=== PATIENT | female | born 1995 | race Caucasian/White ===

== ENCOUNTER 2025-01-18 05:25 | Inpatient (IN) ==
--- NOTE | 2025-01-08 09:10 | Anesthesiology Consultation ---
Date of Service January 08, 2025 Assessment & Plan (1) Encounter for pre-operative examination: - Infectious disease screening: Per assessment on 01/08/25- No known recent infectious disease contacts or current infectious disease symptoms. 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 Reports in February, while at work, all the sudden she felt her heart racing, pounding and skipping, episode lasted for about 30 min, when she checked her pulse HR was in the 160s. She had a recent zio monitor placed which showed 1256 runs of symptomatic SVTs. She states that one month after her initial episode she felt better. However, since March she is having weekly episodes sometimes lasting 30min. She is symptomatic and feels her heart racing and with high HR she feels lightheaded and dizzy. Patient was seen and examined with Dr. Yeung. Pathophysiology and management options of SVT were reviewed. Patient is most interested in EPS study and catheter ablation.. RTC post ablation." > Patient subsequently had positive test and decision to cancel ablation at this time. To f/u after . 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 History Surgery Operation Date: 01/18/25 07:30 Proposed Procedures p Section in LD (Delivery of Baby Through Abdominal Incision) - Larissa Fleming MD, FACOG Height/Weight Height: 5 ft 6 in Weight: 95.254 kg Allergies Allergy/AdvReac Type Severity Reaction Status Date / Time Sulfa (Sulfonamide Allergy Mild Rash (as a Verified 01/08/25 08:15 Antibiotics) child) Medications Home Medications Medication Instructions Recorded Confirmed Last Taken levothyroxine 50 mcg tablet 50 mcg PO QAM 09/19/23 01/08/25 Unknown vits no.124-ferrous fum 1 tab PO QAM 09/19/23 01/08/25 Unknown 27 mg iron-folic acid 800 mcg tablet ( Vitamin) breast pump #1 ea 12/21/24 01/04/25 Unknown Past Medical History Medical History Rosie's thyroiditis History of spontaneous Fall 2022 Hx of supraventricular tachycardia Evlauted by Hermelinda Patel cardio Past Family History Family History Father Hypercholesteremia Hypertension Mother Lupus Thyroid disease Other No family history of adverse response to anesthesia Denies family history of Ovarian cancer Breast cancer Colorectal cancer Past Surgical History Surgical History S/P section S/P tonsillectomy and adenoidectomy S/P wisdom tooth extraction Social History Smoking Status: Never smoker Do You Dip or Chew Tobacco: No Hx Alcohol Use: No Hx Substance Use: No substance use type: does not use Testing Electrocardiogram Date: 05/15/24 Findings: + NSR @ (72) 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 Predominant underlying rhythm was Sinus Rhythm. 1256 Supraventricular Tachycardia runs occurred, the run with the fastest interval lasting 5 beats with a max rate of 200 bpm, the longest lasting 47 mins 8 secs with an avg rate of 125 bpm. Supraventricular Tachycardia was detected within +/- 45 seconds of symptomatic patient event(s). Isolated SVEs were rare (<1.0%), SVE Couplets were rare (<1.0%), and SVE Triplets were rare (<1.0%). Isolated VEs were rare (<1.0%), VE Couplets were rare (<1.0%), and no VE Triplets were present. Ventricular Trigeminy was present. Agree with Preliminary Findings.. The patient had frequent episodes of PSVT. In this age group and based on the morphology it may be AVRT. If the patient is not already seeing.. Cardiology then a referral to the EP service would be recommended.
--- NOTE | 2025-01-17 18:27 | History & Physical Report ---
Date of Service January 17, 2025 Assessment & Plan (1) Previous delivery affecting , antepartum: Plan: IUP at 39+ weeks presents for repeat LTCS the procedure and it's risks reviewed with the patient and all questions answered to her satisfaction. History of Present Illness Primary Care Provider: Shanice Wyman PA-C Patient is a female EDC [birth year] who presents at 39+ weeks for repeat LTCS. Prior LTCS was performed for arrest of descent after pushing for 4 hours- presentation was OP. testing this has been reassuring. complicated by Rosie's thyroiditis. Blood type A (+) GBS - negative. Allergies Allergy/AdvReac Type Severity Reaction Status Date / Time Sulfa (Sulfonamide Allergy Mild Rash (as a Verified 01/17/25 08:35 Antibiotics) child) Home Medications Medication Instructions Recorded Confirmed Type levothyroxine 50 mcg tablet 50 mcg PO QAM 09/19/23 01/17/25 History vits no.124-ferrous fum 1 tab PO QAM 09/19/23 01/17/25 History 27 mg iron-folic acid 800 mcg tablet ( Vitamin) breast pump #1 ea 12/21/24 01/17/25 Rx Patient History Medical History Rosie's thyroiditis History of spontaneous Fall 2022 Hx of supraventricular tachycardia Evlauted by HAROLDO Patel cardio Surgical History S/P section S/P tonsillectomy and adenoidectomy S/P wisdom tooth extraction Family History Father Hypercholesteremia Hypertension Mother Lupus Thyroid disease Other No family history of adverse response to anesthesia Denies family history of Ovarian cancer Breast cancer Colorectal cancer Social History (Updated 06/12/24 @ 09:45 by Alisa Mcwilliams) Smoking Status: Never smoker Second Hand Exposure: No; Do You Dip or Chew Tobacco: No; Hx Alcohol Use: No Hx Substance Use: No Preferred Language: Arabic Communication Ability: Effective Lamina Searcher Required: No Beliefs That Will Affect Care: None marital status: marital status details: Pako Troncoso (31) [phone] Current Living Situation: Spouse and Family Current Living Situation Comment: lives with spouse, daughter, 1odg current occupational status: employed current occupation: [employer] Feels Safe at Home: Yes Assistive Devices: None Review of Systems All systems reviewed & are unremarkable except as noted in HPI & below Physical Exam Constitutional: WD/WN, vitals as above Psychiatric: A+Ox3, euthymic affect Genitourinary: OB Exam Abdomen: + fundal height (term), + heart tones (135 bpm) and + vertex Coding Level of Care Code 94440 INT INP/OBS CARE MIN Diagnoses Previous delivery affecting , antepartum O34.219
[2025-01-18] MEDS: ACETAMINOPHEN 500 MG TAB PO SCH (05:58)
[2025-01-18 06:26] LABS: Hematocrit (blood only) 37.1 % (37.0-47.0); Hemoglobin 13.1 g/dl (12.0-16.0); Mean Corpuscular Hemoglobin 30.1 pg (25.0-34.0); Mean Corpuscular Hgb Conc 35.3 g/dL (32.0-36.0); Mean Corpuscular Volume 85.3 fL (80.0-100.0); Mean Platelet Volume 10.5 fL (9.4-12.4); Platelet Count 190 K/uL (130-400); RDW Standard Deviation 40.1 fL (36.4-46.3); Red Blood Count 4.35 M/uL (4.20-5.40); White Blood Count 8.35 K/ul (4.8-10.8)
[2025-01-18] MEDS: LACTATED RINGER'S 1,000 ML IV SCH (07:07)
--- NOTE | 2025-01-18 07:20 | History & Physical Bridge Note ---
Date of Service January 18, 2025 History & Physical Bridge Note I have examined the patient, reviewed the History & Physical and in the interval since the performance of the History & Physical I have noted the following changes of clinical significance: no changes noted
[2025-01-18] MEDS: ceFAZolin 3000MG 3,000 MG/72.5 ML BAG IV SCH (07:33)
[2025-01-18] MEDS: CITRIC ACID/SODIUM CITRATE 15 ML UDC PO SCH (07:33)
[2025-01-18] MEDS ORDERED: MoRPHine SULFATE PF 1 MG/ML 10 ML AMP/VIAL ONE (07:41)
[2025-01-18] MEDS ORDERED: OXYTOCIN 10 UNITS/ML VIAL ONE (08:11)
[2025-01-18] MEDS ORDERED: PHENYLEPHRINE HCL 25 MG/250 ML NSS IV ONE (08:11)
[2025-01-18] MEDS: OXYTOCIN 20 UNITS/LR 1,002 ML IV SCH (08:20)
[2025-01-18] MEDS ORDERED: NALBUPHINE HCL INJ 10 MG/ML AMP IV PRN (08:26)
[2025-01-18] MEDS ORDERED: ePHEDrine sulfate 50 MG/ML AMP IV PRN (08:26)
[2025-01-18] MEDS ORDERED: MoRPHine SULFATE PF 1 MG/ML 10 ML AMP/VIAL INT SPINAL ONE (08:26)
[2025-01-18] MEDS ORDERED: NALOXONE HCL 0.08 MG in SYRINGE 1.8 ML IV PRN (08:26)
[2025-01-18] MEDS ORDERED: MoRPHine SULFATE 2 MG/ML CARP IV PRN (08:26)
[2025-01-18] MEDS ORDERED: diphenhydrAMINE 50 MG/ML VIAL IV PRN (08:26)
[2025-01-18] MEDS ORDERED: ONDANSETRON INJ 2 MG/ML 2 ML VIAL IV PRN (08:26)
[2025-01-18] MEDS ORDERED: MEPERIDINE HCL 25 MG/ML CARP/VIAL IV PRN (08:26)
[2025-01-18] MEDS ORDERED: NALOXONE HCL 0.4 MG/1 ML VIAL/CARP IV PRN (08:26)
[2025-01-18] MEDS ORDERED: HYDROmorphone INJ 0.5 MG/0.5 ML SYR IV PRN (08:26)
[2025-01-18] MEDS ORDERED: ACETAMINOPHEN 1,000 MG/100 ML VIAL IV PRN (08:26)
[2025-01-18] MEDS ORDERED: PROMETHAZINE 6.25 MG/50.25 ML BAG IV PRN (08:26)
[2025-01-18] MEDS ORDERED: NALOXONE HCL 1 MG in SODIUM CHLORIDE 0.9% 1,000 ML IV PRN (08:26)
[2025-01-18] MEDS ORDERED: fentaNYL citrate PF 100 MCG/2 ML VIAL ONE (08:28)
[2025-01-18] MEDS ORDERED: DC INTRASPINAL MORPHINE SCH (08:30)
[2025-01-18] MEDS ORDERED: NO NARCOTICS OR SEDATIVES SCH (08:30)
[2025-01-18] MEDS ORDERED: KETOROLAC 30 MG/ML VIAL IV PRN (08:31)
[2025-01-18] MEDS ORDERED: MAGNESIUM HYDROXIDE SUSP 30 ML UDC PO PRN (08:33)
[2025-01-18] MEDS ORDERED: BENZOCAINE 20% SPRY 85 APPLN/85 GM CAN EXT PRN (08:33)
[2025-01-18] MEDS ORDERED: HYDROCORTISONE ACETATE 25 MG SUPP PR PRN (08:33)
[2025-01-18] MEDS ORDERED: SENNA 8.6 MG TAB PO PRN (08:33)
[2025-01-18] MEDS ORDERED: CALCIUM CARBONATE 500 MG CHEWABLE TAB PO PRN (08:33)
[2025-01-18] MEDS ORDERED: SODIUM CHLORIDE 0.9% 1,000 ML IV SCH (08:45)
--- NOTE | 2025-01-18 09:05 | Post Operative Brief Note ---
Immediate Post Op Note Date of Surgery January 18, 2025 Pre & Post Diagnosis Operation Date: 01/18/25 07:30 Pre-Op Diagnosis: History of Section Post-Op Diagnosis: History of Section I identified the patient and participated in the time-out.: Yes Procedure Operation Date: 01/18/25 07:30 Actual Procedures p Section - Larissa Fleming MD, FACOG Surgeon Larissa Fleming MD, FACOG Sprayer Leather Vikas Ascencio MD, Laisha Fine MS4 Quantitative Blood Loss (QBL) 240 Findings Consistent with Post-Op Diagnosis gravid uterus normal tubes and ovaries Specimens Specimen Description: A) Placenta- Hold B) Cord Blood Drains Vazquez Catheter (anesthesia to monitor output throughout procedure ) Anesthesia Type Spinal Complications none Disposition Accompanied Patient To Recovery: Yes Disposition: L&D
[2025-01-18] MEDS: KETOROLAC 30 MG/ML VIAL IV SCH (09:08)
--- NOTE | 2025-01-18 09:28 | Operative Report ---
Post Operative Report Pre & Post Diagnosis Operation Date: 01/18/25 07:30 Pre-Op Diagnosis: History of Section Post-Op Diagnosis: History of Section I identified the patient and participated in the time-out.: Yes Procedure Operation Date: 01/18/25 07:30 Actual Procedures p Section - Larissa Fleming MD, FACOG Surgeon Larissa Fleming MD, FACOG Event Decorator Vikas Ascencio MD, Laisha Fine MS4 Quantitative Blood Loss (QBL) 240 Findings Consistent with Post-Op Diagnosis Specimens Placenta to hold Drains Vazquez catheter to straight drainage. Clear urine at the end of the case Anesthesia Type Spinal Complications none Disposition Accompanied Patient To Recovery: Yes Disposition: L&D Indications Patient is a 29-year-old 3 para 1-0-1-1 female who presents at 39 and 1 sevenths weeks for repeat section. Prior section was done for arrest of descent at full dilation. Description of Procedure After the patient received adequate subarachnoid block, patient was draped and prepped in the usual fashion. Low transverse skin incision was made through her prior scar and carried to the fascia with the same scalpel. The fascial incision was then extended with Nelson scissors, the edges were then grasped with Ulises clamps and the underlying rectus muscles bluntly and sharply dissected off of the overlying fascia. The rectus muscles were bluntly divided along the midline. The underlying peritoneum was elevated and entered bluntly. The bladder was then taken down off the anterior surface of the uterus and placed behind the bladder blade with Metzenbaum scissors. The lower uterine segment was entered with a scalpel and extended transversely by stretching the incision in a cephalad and caudad manner. Membranes ruptured for clear fluid. Infant was delivered from the vertex presentation with moderate fundal pressure and assistance of vacuum. Initially delivery of the head was unsuccessful, and the right side of the uterine incision was extended with bandage scissors. The vacuum was then used to bring the head through the incision. The rest of the delivered easily. After stimulation, he was vigorous crying and moving all 4 limbs. After the cord was clamped and cut, he was handed off to Dr. Paul and the nursery crew for further attention and drying. Placenta was then expressed intact with a three-vessel cord. The uterine cavity was scored and found to be free of any placental tissue or membranes. The uterus was then exteriorized and covered with a clean lap sponge. Bleeding was controlled with fundal massage and dilute Pitocin. The uterine incision was then closed in a running locking imbricating fashion with 0 Monocryl in 2 layers. Hemostasis was noted be excellent on the uterine incision. Posterior cul-de-sac was examined and there was minimal blood or fluid posteriorly. The uterus was placed back gently inside the abdominal cavity. The uterine incision was examined once more and continue to have excellent hemostasis. The gutters were also examined and noted to be free of any clot or fluid. The rectus muscle were then brought together in the midline with individual stitches of 0 Monocryl. The fascia was closed in a running fashion with 0 Vicryl. After inspecting and irrigating the subcutaneous layer, the skin edges were reapproximated in a subcuticular fashion with 4-0 Vicryl. Patient tolerated the procedure well and was in stable be condition on arrival back in labor and delivery. I attest to the content of the Intraoperative Record and any orders documented therein. Any exceptions are noted below. OB Procedure Charges 23590
[2025-01-18] MEDS ORDERED: oxyCODONE HCL IR 5 MG TAB (IMMEDIATE RELEASE) PO PRN ×2 (10:59→11:07)
--- NOTE | 2025-01-18 13:25 | Anesthesiology Progress Note ---
Date of Service January 18, 2025 Anesthesia Post Procedure Vital Signs Vital Signs: Temp Pulse Pulse Resp BP BP Pulse Ox 01/18/25 13:08 16 97 01/18/25 11:30 18 99 01/18/25 11:30 36.7 C 64 18 113/73 99 01/18/25 10:57 75 20 115/67 99 01/18/25 10:55 99 01/18/25 10:55 75 01/18/25 10:55 68 115/67 01/18/25 10:50 69 98 01/18/25 10:47 66 114/56 L 01/18/25 10:45 65 98 01/18/25 10:40 69 97 01/18/25 10:37 65 126/58 L 01/18/25 10:35 64 97 01/18/25 10:30 66 97 01/18/25 10:27 69 20 97 01/18/25 10:25 70 97 01/18/25 10:20 70 98 01/18/25 10:15 72 99 01/18/25 10:10 74 98 01/18/25 10:07 66 122/71 01/18/25 10:05 81 96 01/18/25 10:00 66 97 01/18/25 09:58 71 123/56 L 01/18/25 09:57 74 18 97 01/18/25 09:55 74 97 01/18/25 09:50 70 97 01/18/25 09:47 71 20 126/77 01/18/25 09:47 71 126/77 01/18/25 09:45 69 97 01/18/25 09:40 70 98 01/18/25 09:37 70 20 98 01/18/25 09:36 69 113/68 01/18/25 09:35 68 98 01/18/25 09:30 70 97 01/18/25 09:27 79 20 97 01/18/25 09:26 70 113/64 01/18/25 09:25 79 97 01/18/25 09:20 67 97 01/18/25 09:17 67 20 97 01/18/25 09:16 71 118/64 01/18/25 09:15 74 97 01/18/25 09:10 64 96 01/18/25 09:07 67 20 97 01/18/25 09:06 68 126/77 01/18/25 09:05 63 100 01/18/25 08:57 36.9 C 71 20 118/64 01/18/25 08:57 75 120/74 01/18/25 07:11 18 01/18/25 07:11 36.9 C 18 01/18/25 07:10 77 125/77 01/18/25 05:48 37.0 C 16 01/18/25 05:37 37.0 C 16 01/18/25 05:36 86 128/77 O2 Del Method 01/18/25 13:08 01/18/25 11:30 01/18/25 11:30 Room Air 01/18/25 10:57 01/18/25 10:55 01/18/25 10:55 01/18/25 10:55 01/18/25 10:50 01/18/25 10:47 01/18/25 10:45 01/18/25 10:40 01/18/25 10:37 01/18/25 10:35 01/18/25 10:30 01/18/25 10:27 01/18/25 10:25 01/18/25 10:20 01/18/25 10:15 01/18/25 10:10 01/18/25 10:07 01/18/25 10:05 01/18/25 10:00 01/18/25 09:58 01/18/25 09:57 01/18/25 09:55 01/18/25 09:50 01/18/25 09:47 01/18/25 09:47 01/18/25 09:45 01/18/25 09:40 01/18/25 09:37 01/18/25 09:36 01/18/25 09:35 01/18/25 09:30 01/18/25 09:27 01/18/25 09:26 01/18/25 09:25 01/18/25 09:20 01/18/25 09:17 01/18/25 09:16 01/18/25 09:15 01/18/25 09:10 01/18/25 09:07 01/18/25 09:06 01/18/25 09:05 01/18/25 08:57 01/18/25 08:57 01/18/25 07:11 01/18/25 07:11 01/18/25 07:10 01/18/25 05:48 01/18/25 05:37 01/18/25 05:36 Pain Intensity Bilateral Abdomen: Pain Intensity: 1 Transfer of Care Handoff Completed per policy Notes Mental Status: alert / awake / arousable and participated in evaluation Nausea / Vomiting: adequately controlled Pain: adequately controlled Airway Patency, RR, SpO2: stable & adequate BP & HR: stable & adequate Hydration State: stable & adequate Neuraxial Anesthesia: was administered and sensory block is resolving Anesthetic Complications: no major complications apparent and Pt Satisfied with anesthetic care
[2025-01-18] MEDS: SIMETHICONE 80 MG CHEW PO SCH (14:48)
[2025-01-18] MEDS: ACETAMINOPHEN 325 MG TAB PO SCH (14:49)
[2025-01-18] MEDS: DOCUSATE SODIUM 100 MG CAP PO SCH (20:38)
[2025-01-19] MEDS ORDERED: HYDROmorphone INJ 0.5 MG/0.5 ML SYR IV PRN (02:26)
[2025-01-19] MEDS ORDERED: diphenhydrAMINE 50 MG/ML VIAL IV PRN (02:26)
[2025-01-19] MEDS ORDERED: ONDANSETRON INJ 2 MG/ML 2 ML VIAL IV PRN (02:26)
[2025-01-19] MEDS ORDERED: diphenhydrAMINE Capsule 25 MG CAP PO PRN (02:26)
[2025-01-19] MEDS ORDERED: PROMETHAZINE 12.5 MG/50.5 ML BAG IV PRN (02:26)
[2025-01-19] MEDS ORDERED: oxyCODONE HCL IR 5 MG TAB (IMMEDIATE RELEASE) PO PRN ×2 (02:26)
--- NOTE | 2025-01-19 06:10 | Obstetrical Progress Note ---
Date of Service <Lexii Barajas MD - Last Filed: 01/19/25 07:55> January 19, 2025 Assessment & Plan <Lexii Barajas MD - Last Filed: 01/19/25 07:55> (1) care and examination: POD#1 s/p rLTCS at 39+ wga: Stable. Rh+, gbs neg, ri, vitals & H/H wnl Continue routine care, ambulation, diet as tolerated, prn meds ordered if no BM Probable DC tomorrow <Alla Barron MD, FACOG - Last Filed: 01/19/25 08:00> (1) care and examination: Subjective <Lexii Barajas MD - Last Filed: 01/19/25 07:55> Patient is a 29yo who is POD#1 following delivery at 39+ weeks. Abd pain/cramping - mild, well managed on analgesics Voiding w/o issue Tolerating meals Ambulating normally No BM or flatus, denies gas pains Lochia appropriate, diminishing Planning to breastfeed. Constitutional: no fever, no chills or no sweats Respiratory: no dyspnea Cardiovascular: no chest pain, no palpitations or no calf pain Breast: no breast pain Gastrointestinal: no nausea or no vomiting Genitourinary (female): no dysuria Neurologic: no headache(s) no changes in vision, no headaches Physical Exam <Lexii Barajas MD - Last Filed: 01/19/25 07:55> General: Alert, oriented. No acute distress. Cardiac: Regular rate and rhythm, no murmurs, rubs, or gallops. Respiratory: Clear to auscultation bilaterally. No increased work of breathing. Symmetrical chest rise. No respiratory distress. Abdomen: Soft, nontender, nondistended. Bowel sounds present. Uterus: Uterine fundus firm, nontender, palpable 1 cm below the umbilicus. Surgical scar clean and healing well. Lower extremities: No lower extremity edema or swelling. No deep calf pain. Results & Data <Lexii Barajas MD - Last Filed: 01/19/25 07:55> Vital Signs (Past 12 Hours) Vital Signs Temp Pulse Resp BP Pulse Ox O2 Del Method 01/19/25 03:30 36.4 C L 76 16 120/83 98 Room Air 01/19/25 02:00 16 96 01/19/25 01:15 14 96 01/19/25 00:00 16 97 01/18/25 23:55 36.6 C 69 16 104/66 95 Room Air 01/18/25 23:00 16 97 01/18/25 22:20 16 97 01/18/25 21:00 18 96 01/18/25 20:00 14 96 01/18/25 20:00 36.7 C 85 16 108/73 95 Room Air 01/18/25 19:00 16 97 Laboratory Results 01/18/25 05:56 Supervising Physician <Alla Barron MD, FACOG - Last Filed: 01/19/25 08:00> Co-Signing Physician Notes Resident Physician Supervision Note: I interviewed and examined the patient. Discussed with Dr. Barajas and agree with findings and plan as documented in the note. Any exceptions or clarifications are listed here: Doing well. Routine ppd1/pod1 care. Documented By: Alla Barron MD, FACOG Resident Activity Tracking <Lexii Barajas MD - Last Filed: 01/19/25 07:55> Resident Involvement: Resident Care Provided Care Provided: Adult Hospital Medicine
[2025-01-19] MEDS: LEVOTHYROXINE SODIUM 50 MCG TABLET PO SCH (07:19)
[2025-01-19] MEDS: DIPHTHER/TETAN/PERTUS Vaccine (Tdap, Adol/Adult) 0.5mL IM ONE (07:53)
[2025-01-19] MEDS: LACTATED RINGER'S 1,000 ML IV SCH ×2 (07:53)
[2025-01-19 08:10] LABS: Basophils # (auto) 0.06 K/uL (0.00-0.20); Basophils % (auto) 0.5 %; Eosinophils # (auto) 0.22 K/uL (0.00-0.50); Eosinophils % (auto) 1.7 %; Hematocrit (blood only) 39.4 % (37.0-47.0); Hemoglobin 13.4 g/dl (12.0-16.0); Immature Granulocytes # (auto) 0.05 K/uL (0.01-0.20); Immature Granulocytes % (auto) 0.4 %; Lymphocytes # (auto) 1.93 K/uL (1.20-3.40); Lymphocytes % (auto) 14.9 %; Mean Corpuscular Hemoglobin 29.9 pg (25.0-34.0); Mean Corpuscular Volume 87.9 fL (80.0-100.0); Monocytes # (auto) 1.02 K/uL (0.11-0.59); Monocytes % (auto) 7.9 %; Neutrophils # (auto) 9.63 K/uL (1.40-6.50); Neutrophils % (auto) 74.6 %; Platelet Count 162 K/uL (130-400); RDW Coefficient of Variation 13.3 % (11.5-14.5); RDW Standard Deviation 42.7 fL (36.4-46.3); Red Blood Count 4.48 M/uL (4.20-5.40); White Blood Count 12.91 K/ul (4.8-10.8)
[2025-01-19] MEDS: PRENATAL VITAMIN 1 TAB PO SCH (08:51)
[2025-01-19] MEDS: FERROUS SULFATE 325 MG TAB PO SCH (08:51)
[2025-01-19] MEDS: IBUPROFEN 600 MG TAB PO SCH (08:52)
[2025-01-19] MEDS ORDERED: KETOROLAC 30 MG/ML VIAL IV PRN (09:00)
[2025-01-19] MEDS: bisacodyL 5 MG TABEC PO SCH (20:50)
[2025-01-20 07:24] LABS: Hematocrit (blood only) 37.4 % (37.0-47.0); Hemoglobin 12.7 g/dl (12.0-16.0)
[2025-01-20 08:25] VITALS: BP 128/84; PULSE 71; RESP 16; TEMP 98.1; O2SAT 97
[2025-01-20] MEDS ORDERED: bisacodyL 10 MG SUPP PR PRN (08:33)
--- NOTE | 2025-01-20 08:48 | Obstetrical Progress Note ---
Date of Service January 20, 2025 Assessment & Plan (1) care and examination: satisfactory post-op and recovery ready for discharge follow up in 6 weeks or PRN Subjective Ambulation: ambulating normally Voiding: no voiding problems Passing Gas:: Yes Diet Tolerance:: regular diet Lochia:: Small Feeding Type:: breast feeding Physical Exam Constitutional WD/WN, vitals as above Gastrointestinal (Abdomen) Inspection/Auscultation: + abdominal surgical incision (dry and intact- no erythema or induration) Psychiatric A+Ox3, euthymic affect Genitourinary OB Exam Abdomen: + fundal height Fundus: + firm and + relation to umbilicus (2 below) Results & Data Vital Signs (Past 12 Hours) Vital Signs Temp Pulse Resp BP Pulse Ox O2 Del Method 01/20/25 08:21 98.1 F 71 16 128/84 97 Room Air 01/19/25 23:45 97.9 F 72 18 114/78 94 Room Air 01/19/25 20:50 97.9 F 80 18 124/82 95 Room Air
[2025-01-20] MEDS: IBUPROFEN 600 MG TAB PO PRN (09:03)
--- NOTE | 2025-01-20 11:14 | Discharge Summary ---
Date of Service January 20, 2025 Admission HPI Per Admitting Provider Patient is a female EDC [birth year] who presents at 39+ weeks for repeat LTCS. Prior LTCS was performed for arrest of descent after pushing for 4 hours- presentation was OP. testing this has been reassuring. complicated by Rosie's thyroiditis. Blood type A (+) GBS - negative. Admission Exam (Per Admitting) Constitutional WD/WN, vitals as above Gastrointestinal (Abdomen) Inspection/Auscultation: + abdominal surgical incision (dry and intact- no erythema or induration) Psychiatric A+Ox3, euthymic affect Genitourinary OB Exam Abdomen: + fundal height, + heart tones (135 bpm) and + vertex Discharge Data Consultations 01/18/25 05:26 Consult Anesthesiology Stat Procedures Performed Operation Date: 01/18/25 07:30 Actual Procedures p Section - Larissa Fleming MD, [facility] [place] Hospital Course (1) care and examination: satisfactory post-op and recovery ready for discharge follow up in 6 weeks or PRN Discharge Plan Discharge Items Patient Disposition: Home - Self-Care Reason For Visit: Histroy of Section Discharge Diagnosis: repeat C/S Activity: Per Instructions section Non-emergency contact: Master Black Belt Call non-emergency contact if: your pain is concerning for you, your temperature is above 101, your wound has increased redness, your wound has increased drainage and your wound pain has increased Follow-up/Referrals: Shanice Wyman PA-C [Primary Care Provider] - Diet: Regular Addtl Attending Provider Instructions: ACTIVITY RECOMMENDATIONS: * Gradual return to full activity over the next 2-3 weeks. * No lifting - nothing heavier than baby over the next 2-3 weeks. * Do not engage in vigorous exercise, sexual activity or sports until cleared by your physician. * Do not drive or operate any motorized equipment until cleared by your physician. * You may shower/bathe daily. MEDICATIONS: For discomfort or pain, you may use Acetaminophen (Tylenol), Ibuprofen (Advil), or Naproxen (Aleve) following the package directions. For constipation you may use Colace following the package directions. BREAST CARE: If you are not breast feeding: * Wear a supportive bra 24 hours a day for one to two weeks. * Avoid stimulating your breasts and nipples as much as possible during the first few weeks after delivery. * When taking a shower, have the warm water hit your back, not breasts. * When your breasts feel full, apply ice packs. Usually three to four times a day helps ease the discomfort. * Take a mild pain medication (Tylenol / Motrin) when you are uncomfortable. If breast feeding: * Use breast milk to lubricate nipples. Lansinoh cream may be used for sore nipples. You do not need to remove cream prior to breast feeding. If using a different brand of cream, check the label for directions regarding removal of cream prior to nursing. * Wear a supportive bra. * If having problems with breasts or breast feeding, call a quantitative consultant or your health care provider. SPECIAL CARE INSTRUCTIONS: When you are discharged from the hospital, it is important for you to follow the instructions listed below: * During the first week at home, you should be able to care for yourself and your baby. In addition, the usual light household activities are encouraged. * Limit your activities to the way you feel. Do not try to clean the house or move furniture. Be sensible. * If you actively engage in sports and have done so up until the time of your delivery, you may resume these activities as soon as you feel able. This may take up to one month or even longer. Use good judgment. * Continue to take your vitamins for at least six weeks after the of your baby. * Your diet need not be limited unless you were on a special diet before your delivery. Breast-feeding mothers need around 2500 calories per day and at least 64-80 ounces of fluid per day (8 to 10 glasses). * You should eat foods from the four major food groups. Crash diets or fad diets are to be avoided. Eating lean meats, fresh fruits and vegetables, low-fat dairy products, high fiber foods and a regular exercise program, will help you get back to your pre- weight without putting your health at risk. * Constipation is sometimes a problem after delivery. Take a mild laxative as needed. If breast feeding, Milk of Magnesia is acceptable to use. You may use a suppository or Fleets enema. * A daily shower or tub bath is suggested. Wash incision daily with warm soapy water and pat dry. It doesn't need to be covered unless drainage is present. * A bloody vaginal discharge will usually continue until around four weeks . A small amount of bleeding may continue for as long as six weeks. Vaginal discharge changes from the bright red bleeding after delivery to pink then brownish and finally yellowish-pink before becoming white and disappearing. * Bleeding may increase with activity. Your first period may come in 4-8 weeks. If you are breast feeding, your period may be delayed even longer. * Marana (sex) can begin whenever both you and your partner feel comfortable and do not have any form of genital infection. It is recommended that you wait at least six weeks for internal and external healing to occur. If you have questions, please talk to your health care practitioner. A condom should be used to prevent infection and . * Foreplay, gentle intercourse and lubrication is very important the first several times to prevent pain. A water-based lubricant such as K-Y jelly or Astroglide may be used. * If you have RH negative blood and your baby is RH positive, you will receive RHOGAM by injection prior to discharge. The nurse will give you a card to keep with you that has the date and place that you received RHOGAM after delivery. * During your care, you had a Rubella screen done to check for the presence of rubella antibodies in your blood. If your test was negative, you will receive a Rubella vaccine prior to discharge. This vaccine may cause a fever, soreness at the injection site and flu-like symptoms. If these symptoms persist, notify your health care practitioner. is not advised for one month after a Rubella vaccine. * Verbalizes understanding of car seat law as reviewed with patient nursing. * Car Seat hand-out given and reviewed with patient by nursing. * Shaken baby information reviewed with patient by nursing. Call you doctor if: * Heavy bleeding (saturating several pads an hour) or passing clots the size of your fist. * A fever >101 degrees F (38.3 degrees C) on two occasions four hours apart and/or chills. * Unusual pain in the pelvic or vaginal areas. * Call the doctor for any increased redness, drainage or swelling around the incision and any pain unrelieved by prescribed pain medication. * "Baby Blues" lasting longer than two weeks. If you have any questions or concerns, call your health care practitioner at . FOLLOW UP VISIT: * Please call the office at to schedule a 6 week examination. It is important you keep this appointment. It is important for you to make arrangements for either yearly or twice yearly check-ups thereafter. Pending Studies at Discharge: No Stand-Alone Forms: My [facility] [employer], Smoking Cessation Medications and DC Order Prescriptions: Continued (DME) breast pump Device See Rx Instructions .ROUTE .MEDSUPPLY Qty: 1 0RF Rx Instructions: As directed levothyroxine 50 mcg Tablet 50 mcg PO QAM Vitamin 27 mg iron- 800 mcg Tablet 1 tab PO QAM Discharge Orders: Discharge Order (Routine); Ordered 01/20/25 Ordered By: Larissa Key/Other Patient Handouts: DVT in , Understanding Depression Admission Data Admit Date/Time: 01/18/25 05:25 Attending Provider: Larissa Fleming Admit Provider: Larissa Fleming Primary Care Provider: Shanice Wyman Other Providers: Branden Richter Other Interventions: Discharge Summary Assessment (RN) Last Done: 01/20/25 10:37 Coding Level of Care Code 92621 IN/OBS DISCH 30 MIN/LESS Diagnoses care and examination Z39.2
[2025-01-20] MEDS ORDERED: ACETAMINOPHEN 325 MG TAB PO PRN (15:00)
== END 2025-01-20 11:50 | disposition home or self-care (01) | DRG 788 ==
LOC: 4S1 05:25 → EDSTATUS 10:20 → 4E2 11:14